=== PATIENT | female | born 1965 | race Caucasian/White ===

== ENCOUNTER 2016-10-20 20:31 | Emergency (ER) | payer OTHER ==
[2016-10-20 20:57] VITALS: TEMP 98.8
[2016-10-20 21:44] LABS: ADD DIFF? NO; ADD MORPH? NO; ADD SCAN? NO; ATYPICAL LYMPHOCYTE FLAG 10 (0-99); FRAGMENT RBC FLAG 0 (0-99); HEMATOCRIT 37.8 % (38.0-47.0); LEFT SHIFT FLG 0 (0-99); LIPEMIA HEMOLYSIS FLAG 90 (0-99); MEAN CELL HEMOGLOBIN CONCENTR. 34.4 g/dL (32.4-36.7); MEAN CELL VOLUME 95.9 fL (81.5-99.8); MEAN PLATELET VOLUME 9.8 fL (8.7-11.7); PLATELET CLUMPS FLAG 0 (0-99); PLATELET COUNT 250 10^3/uL (150-400); RED BLOOD CELL COUNT 3.94 10^6/uL (4.18-5.33); RED CELL DISTRIBUTION WIDTH 12.5 % (11.5-15.2)
[2016-10-20 21:55] LABS: ANION GAP 9 mEq/L (8-16); CALCIUM 9.5 mg/dL (8.5-10.4); CARBON DIOXIDE 25 mEq/l (22-31); CHLORIDE 101 mEq/L (97-110); CREATININE 0.8 mg/dL (0.6-1.0); GLOMERULAR FILTRATION RATE > 60; GLUCOSE 98 mg/dL (70-100); POTASSIUM 3.7 mEq/L (3.5-5.2); SODIUM 135 mEq/L (134-144)
[2016-10-20 22:05] LABS: TROPONIN I < 0.012 ng/mL (0-0.034)
--- NOTE | 2016-10-20 22:06 | CPEKG ---
Heart Rate: 64 RR Interval: 938 P-R Interval: 176 QRSD Interval: 88 QT Interval: 420 QTC Interval: 434 P [place]: 72 QRS [place]: 130 T Wave [place]: 62 EKG Severity - BORDERLINE ECG - EKG Impression: SINUS RHYTHM EKG Impression: RIGHT AXIS DEVIATION EKG Impression: BORDERLINE T ABNORMALITIES, ANT-LAT LEADS Electronically Signed By: Tressa Pedraza 20-Oct-2016 23:06:26
--- NOTE | 2016-10-20 22:19 | EDPHY ---
H & P Stated Complaint: nausea, jaw pain, cp 4 days ago - Personal History Current Tetanus Diphtheria and Acellular Pertussis (TDAP): Yes - Medical/Surgical History Hx Asthma: No Hx Chronic Respiratory Disease: No Hx Diabetes: No Hx Cardiac Disease: No Hx Renal Disease: No Hx Cirrhosis: No Hx Alcoholism: No Hx HIV/AIDS: No Hx Splenectomy or Spleen Trauma: No Other PMH: denies - Social History Smoking Status: Never smoked Time Seen by Provider: 10/20/16 21:25 HPI/ROS: Chief complaint: Left-sided jaw pain History of present illness: This is a 51-year-old female who presents to the emergency department for evaluation of left-sided jaw pain. Patient reports the onset of symptoms over the last 4 days. She reports she has had increased salivation with it. However she is concerned because on the 1st day of symptoms , approximately 4 days ago she had some chest pain. She describes right-sided pain. She also reports she developed some pain in her arm that day although she states she cannot remember if it was the right or left arm. The pain in her chest and arms resolved after the 1st day and have not returned. At this time it is just the jaw that is bothering her. She called Ask a Nurse hotline who recommended she come to the emergency room for evaluation. Patient denies other associated signs or symptoms including no fevers, no cold-like symptoms, no cough or trouble breathing, no pain or swelling in the legs. Review of systems: A 10 point review of systems was obtained and other than described above was negative (Mychal Boyce) - Physical Exam Exam: General Appearance: Alert, no distress. Eyes: Pupils equal and round no pallor or injection. ENT: Tympanic membranes, external auditory canals, external easr and surrounding soft tissue including over the mastoids are unremarkable. Nasopharynx is not injected. There is no rhinorrhea. Mouth is unremarkable. Oropharynx is not injected. There is no edema. There is no exudate. There is no asymmetry. The uvula is midline. No elevation of the tongue. There is no hoarseness, no drooling, no trismus, no stridor. Mild tenderness at the angle of the left jaw without edema noted. Respiratory: There are no retractions, lungs are clear to auscultation. Cardiovascular: Regular rate and rhythm. Gastrointestinal: Abdomen is soft and nontender, no masses, bowel sounds normal. Neurological: Alert and oriented x4. Strength and sensation intact and symmetrical. Skin: Warm and dry, no rashes. Musculoskeletal: Neck is supple nontender. Extremities are symmetrical, full range of motion. Psychiatric: Patient is oriented X 3, there is no agitation. (Mychal Boyce) Constitutional: Initial Vital Signs Temperature (C) 37.1 C 10/20/16 20:54 Heart Rate 69 10/20/16 20:54 Respiratory Rate 20 10/20/16 20:54 Blood Pressure 122/79 H 10/20/16 20:54 O2 Sat (%) 99 10/20/16 20:54 O2 Delivery Mode Room Air Allergies/Adverse Reactions: onion Allergy (Verified 10/20/16 20:52) avacado Allergy (Uncoded 10/20/16 20:52) Home Medications: Medication Instructions Recorded FLUoxetine 10/20/16 Nora 28 Tablet 10/20/16 Medical Decision Making - Diagnostics Imaging: Chest x-ray unremarkable (Mychal Boyce) ED Course/Re-evaluation: The patient was evaluated and managed by the physician's pharmacy assistant. My cosignature indicates that I reviewed the chart and I agree with the findings and plan of care as documented. I am the secondary supervising physician. ( Tressa Pedraza) Differential Diagnosis: Patient seen under the supervision of my secondary supervising physician Dr. Tressa Pedraza. Patient presents to the emergency depart for jaw pain. On presentation she is nontoxic. Afebrile and vital signs are stable. There is tenderness to the angle of the jaw on the left side without edema. No other findings to the jaw, mouth or throat. Given the chest pain initially she is evaluated without significant findings. I am concerned for possible developing salivary issue. I have discussed the use of sililogouges at home. Patient is discharged home. She is asked to follow up with her primary care doctor next week for recheck. Strict return precautions are given. Patient voiced understanding and agreement with plan. (Mychal Boyce) - Data Points Laboratory Results: Laboratory Results 10/20/16 21:35 10/20/16 21:35 10/20/16 10/20/16 21:35 21:35 WBC 4.97 10^3/uL 10^3/uL (3.80-9.50) RBC 3.94 10^6/uL L 10^6/uL (4.18-5.33) Hgb 13.0 g/dL g/dL (12.6-16.3) Hct 37.8 % L % (38.0-47.0) MCV 95.9 fL fL (81.5-99.8) MCH 33.0 pg pg (27.9-34.1) MCHC 34.4 g/dL g/dL (32.4-36.7) RDW 12.5 % % (11.5-15.2) Plt Count 250 10^3/uL 10^3/uL (150-400) MPV 9.8 fL fL (8.7-11.7) Neut % (Auto) 35.4 % L % (39.3-74.2) Lymph % (Auto) 49.3 % H % (15.0-45.0) [place] % (Auto) 6.4 % % (4.5-13.0) Eos % (Auto) 8.5 % H % (0.6-7.6) Baso % (Auto) 0.4 % % (0.3-1.7) Nucleat RBC Rel Count 0.0 % % (0.0-0.2) Absolute Neuts (auto) 1.76 10^3/uL 10^3/uL (1.70-6.50) Absolute Lymphs (auto) 2.45 10^3/uL 10^3/uL (1.00-3.00) Absolute Monos (auto) 0.32 10^3/uL 10^3/uL (0.30-0.80) Absolute Eos (auto) 0.42 10^3/uL H 10^3/uL (0.03-0.40) Absolute Basos (auto) 0.02 10^3/uL 10^3/uL (0.02-0.10) Absolute Nucleated RBC 0.00 10^3/uL 10^3/uL (0-0.01) Immature Gran % 0.0 % % (0.0-1.1) Immature Gran # 0.00 10^3/uL 10^3/uL (0.00-0.10) Sodium 135 mEq/L mEq/L (134-144) Potassium 3.7 mEq/L mEq/L (3.5-5.2) Chloride 101 mEq/L mEq/L (97-110) Carbon Dioxide 25 mEq/l mEq/l (22-31) Anion Gap 9 mEq/L mEq/L (8-16) BUN 18 mg/dL mg/dL (7-23) Creatinine 0.8 mg/dL mg/dL (0.6-1.0) Estimated GFR > 60 Glucose 98 mg/dL mg/dL (70-100) Calcium 9.5 mg/dL mg/dL (8.5-10.4) Troponin I < 0.012 ng/mL ng/mL (0-0.034) Departure - Departure Disposition: Home, Routine, Self-Care Clinical Impression: Jaw pain Condition: Good Instructions: Chest Pain (ED) Additional Instructions: Follow-up with your primary care doctor on Sunday for recheck If symptoms worsen or new symptoms develop return to the emergency department for recheck Referrals: Christa Pacheco MD [Primary Care Provider] - As per Instructions
[2016-10-20 23:16] VITALS: BP 117/65; PULSE 63; RESP 14; O2SAT 94
== END 2016-10-20 23:16 | disposition home or self-care (01) ==
DX: R68.84 Jaw pain (principal)

== ENCOUNTER → 2017-03-06 | Outpatient (CLI) | payer OTHER | LOC: FIMAGING 09:13 | PROVIDERS: ATTEND Internal Medicine | DX: Z12.31 Encounter for screening mammogram for malignant neoplasm of breast (principal) | CPT/HCPCS: G0202 ==

== ENCOUNTER → 2018-04-09 | Outpatient (CLI) | payer OTHER | LOC: FIMAGING 11:10 | PROVIDERS: ATTEND Internal Medicine | DX: Z12.31 Encounter for screening mammogram for malignant neoplasm of breast (principal) ==

== ENCOUNTER 2018-11-02 16:34 | Emergency (ER) | payer OTHER ==
--- NOTE | 2018-11-02 16:30 | EDPHY ---
H & P Time Seen by Provider: 11/02/18 16:35 Constitutional: Initial Vital Signs Temperature (C) 38.6 C H 11/02/18 16:44 Heart Rate 66 11/02/18 16:44 Respiratory Rate 16 11/02/18 16:44 Blood Pressure 131/89 H 11/02/18 16:44 O2 Sat (%) 99 11/02/18 16:44 O2 Delivery Mode Room Air Allergies/Adverse Reactions: onion Allergy (Verified 11/02/18 16:43) avacado Allergy (Uncoded 10/20/16 20:52) Home Medications: Medication Instructions Recorded FLUoxetine 10/20/16 Nora 28 Tablet 10/20/16 Ibuprofen [Motrin] 800 mg PO Q8 #20 tab 11/02/18 oxyCODONE IR [Oxycodone Ir (*)] 5 mg PO Q4-6PRN PRN #20 tab 11/02/18 Medical Decision Making - Diagnostics Imaging Results: Imaging Impressions Abdomen CT 11/02/18 16:40 Impression: 1. There is no rib fracture, pleural effusion, or pneumothorax. 2. There are some mild dependent subsegmental atelectatic changes on the right side. CONTRAST-ENHANCED CT SCAN OF THE ABDOMEN AND PELVIS: Liver: Normal in size, with no evidence of hepatic or pericapsular hematoma. There are indeterminate hypodensities seen in the anterior right hepatic lobe measuring 10 to 18 mm in diameter on series 10, image 14 (Hounsfield unit measurements of 62-65), as well as punctate hypodensities seen along the posterior right hepatic dome on series 10, images 10, 11, and 23. There is a 1.3 x 1.5 cm cyst in the caudal right hepatic lobe with a Hounsfield unit measurement of 18. Bile Ducts: There appears to be some minimal intrahepatic bile duct dilatation ( versus some mild periportal edema in this patient who has been recently IV hydrated). The common bile duct does not appear dilated, nor is there any pancreatic ductal dilatation. Correlation with a fractionated bilirubin is suggested. Gallbladder: There are no calcified gallstones, wall thickening, or pericholecystic fluid. Pancreas: Normal. Spleen: Normal. Adrenal Glands: There is a 2.5 x 3.1 x 3.2 cm rounded right adrenal gland mass with an arterial phase enhancement of 47 and portal venous phase enhancement of 46. This is an indeterminate finding at this point. One could consider a follow- up multiphasic contrast-enhanced MR or CT in 3 months for reassessment. The left adrenal gland appears normal. Kidneys/Ureters/Urinary Bladder: The kidneys are normal in size, shape, and position, with no hydronephrosis. There is a vnt-jestu-ll-characterize hypodensity along the anterior midpole of the right kidney on series 10, image 26. The urinary bladder is unremarkable. GI Tract: The stomach, small bowel, large bowel, and appendix appear normal.] Retroperitoneum: Negative. Mesentery/Omentum/Peritoneum: There is no ascites, free air, or localized fluid collection.] Vessels: The abdominal aorta is normal in size, and tapers normally. The IVC is normal in caliber. The splenic vein, superior mesenteric vein, and the main portal vein are patent. Reproductive Organs: The uterus is anteverted and anteflexed. There is no adnexal mass.. Abdominal Wall: Negative. Osseous Structures: The vertebral body heights are maintained. There is trace degenerative anterolisthesis at L4-L5 and there is a vacuum disk phenomenon at L5-S1. There is some facet degenerative change with vacuum phenomena at L4-L5 as well. There is no transverse or spinous process fracture. Each hip is anatomically-aligned. The SI joints are normal, with no diastasis. Impression: 1. There is no acute intra-abdominal visceral injury identified. 2. There is an indeterminate 3.2 cm right adrenal gland nodule. Consider follow- up multiphasic contrast-enhanced CT or MR in 3 months for reassessment. 3. There are a couple of small indeterminate hypodensities seen within the right hepatic lobe, which could also be reevaluated in 3 months, given the lack of any preceding studies. 4. Query mild intrahepatic bile duct dilatation versus mild periportal edema from IV hydration. Correlation with fractionated bilirubin level is suggested. Findings were discussed with Michele Hurd MD at 18:53, on 11/02/2018. Chest CT 11/02/18 16:40 Impression: 1. There is no rib fracture, pleural effusion, or pneumothorax. 2. There are some mild dependent subsegmental atelectatic changes on the right side. CONTRAST-ENHANCED CT SCAN OF THE ABDOMEN AND PELVIS: Liver: Normal in size, with no evidence of hepatic or pericapsular hematoma. There are indeterminate hypodensities seen in the anterior right hepatic lobe measuring 10 to 18 mm in diameter on series 10, image 14 (Hounsfield unit measurements of 62-65), as well as punctate hypodensities seen along the posterior right hepatic dome on series 10, images 10, 11, and 23. There is a 1.3 x 1.5 cm cyst in the caudal right hepatic lobe with a Hounsfield unit measurement of 18. Bile Ducts: There appears to be some minimal intrahepatic bile duct dilatation ( versus some mild periportal edema in this patient who has been recently IV hydrated). The common bile duct does not appear dilated, nor is there any pancreatic ductal dilatation. Correlation with a fractionated bilirubin is suggested. Gallbladder: There are no calcified gallstones, wall thickening, or pericholecystic fluid. Pancreas: Normal. Spleen: Normal. Adrenal Glands: There is a 2.5 x 3.1 x 3.2 cm rounded right adrenal gland mass with an arterial phase enhancement of 47 and portal venous phase enhancement of 46. This is an indeterminate finding at this point. One could consider a follow- up multiphasic contrast-enhanced MR or CT in 3 months for reassessment. The left adrenal gland appears normal. Kidneys/Ureters/Urinary Bladder: The kidneys are normal in size, shape, and position, with no hydronephrosis. There is a tjh-ygkaq-wi-characterize hypodensity along the anterior midpole of the right kidney on series 10, image 26. The urinary bladder is unremarkable. GI Tract: The stomach, small bowel, large bowel, and appendix appear normal.] Retroperitoneum: Negative. Mesentery/Omentum/Peritoneum: There is no ascites, free air, or localized fluid collection.] Vessels: The abdominal aorta is normal in size, and tapers normally. The IVC is normal in caliber. The splenic vein, superior mesenteric vein, and the main portal vein are patent. Reproductive Organs: The uterus is anteverted and anteflexed. There is no adnexal mass.. Abdominal Wall: Negative. Osseous Structures: The vertebral body heights are maintained. There is trace degenerative anterolisthesis at L4-L5 and there is a vacuum disk phenomenon at L5-S1. There is some facet degenerative change with vacuum phenomena at L4-L5 as well. There is no transverse or spinous process fracture. Each hip is anatomically-aligned. The SI joints are normal, with no diastasis. Impression: 1. There is no acute intra-abdominal visceral injury identified. 2. There is an indeterminate 3.2 cm right adrenal gland nodule. Consider follow- up multiphasic contrast-enhanced CT or MR in 3 months for reassessment. 3. There are a couple of small indeterminate hypodensities seen within the right hepatic lobe, which could also be reevaluated in 3 months, given the lack of any preceding studies. 4. Query mild intrahepatic bile duct dilatation versus mild periportal edema from IV hydration. Correlation with fractionated bilirubin level is suggested. Findings were discussed with Michele Hurd MD at 18:53, on 11/02/2018. Imaging: Discussed imaging studies w/ manager call Radiologist, I viewed and interpreted images myself ED Course/Re-evaluation: CHIEF COMPLAINT: Right rib pain, LTA HISTORY OF PRESENT ILLNESS: The patient is a 53 y/o female arriving via EMS as a limited trauma alert complaining of right rib pain. Per EMS, the patient was riding a draft horse un- helmeted when she was bucked off and fell on her right side. She did not lose consciousness and is not complaining of any neck pain. However, she was unable to move due to the right rib pain. She is unable to take a deep breath, but her O2Sats are 97%. Due to the pain she was given a total of 200mcg IV Fentanyl. No fever, headache, body aches, lightheadedness, chest pain, heart palpitations, cough, abdominal pain, urinary or bowel complaints, numbness, paresthesias. REVIEW OF SYSTEMS: A comprehensive 10 system review of systems is otherwise negative aside from elements mentioned in the history of present illness and medical decision making. PHYSICAL EXAM: General Appearance: Alert, no distress, talking appropriately, comfortable. Head: Atraumatic without scalp tenderness or obvious injury Eyes: Pupils equal, round, reactive to light and accommodation, EOMI, no trauma , no injection. Ears: Clear bilaterally, no perforation, no hemotympanum Nose: Atraumatic, no rhinorrhea, no septal hematoma Neck: All Russian C-spine rules set criteria are negative. The cervical spine is nontender and there is no pain or neurologic deficits with active range of motion. Supple, 2+ carotid upstroke bilaterally without bruit, no trauma, trachea midline. Cardiovascular: Heart is regular rate and rhythm without murmur. Bilateral carotid, radial, dorsalis pedis pulses intact. Good capillary refill all extremities. Chest: Right lateral chest wall tenderness. Equal bilateral breath sounds. Good oxygen saturations with normal minute ventilation. Chest is nontender to palpation. Gastrointestinal: Soft, nontender, non-distended. No rebound, guarding, or peritoneal signs. There is no evidence of external or internal trauma. Back: Spinal precautions were maintained. There is no thoracic or lumbar spine or paraspinal tenderness. Extremities: All extremities are nontender to palpation without obvious deformity. There is full active range of motion of the joints. Neurological: The patient has normal DTRs and non-focal Cranial nerves, motor, sensory, and cerebellar exam Skin: No lacerations, chauhan, or abrasions. Past medical history: Denies Past surgical history: Denies Family history: Denies Social history: Employed, does not abuse drug or alcohol DIAGNOSTICS/PROCEDURES/CRITICAL CARE TIME: Chest CT: No acute findings. Abdominopelvic CT: No acute findings. Incidental findings of adrenal and liver cyst; repeat CT or MRI in 3 months with PCP. DIFFERENTIAL DIAGNOSIS: The differential diagnosis for the patient's trauma included but was not limited to intracranial injury, long bone and pelvic bone fractures, spinal injury, intra-abdominal injury, and intra-thoracic injury. MEDICAL DECISION MAKING: The patient is a 53 y/o female arriving via EMS as a limited trauma alert presenting with right rib pain secondary to falling off of a draft horse today. She denies loss of consciousness or neck pain. On exam she has right later chest wall tenderness to palpation. She does not have any abdominal tenderness. Labs as well as chest, abdomen, pelvic CT ordered; 1mg IV Dilaudid administered. 1730: Patient is still in pain; additional 1mg IV Dilaudid and 100mcg IV Fentanyl. 1855: I spoke to Dr. Hyatt, radiologist regarding patient's imaging findings. There are no acute findings. There are incidental findings of adrenal and liver cyst; repeat CT or MRI in 3 months. 1900: Reassessed patient and discussed imaging findings. I have prescribed her OxyIR for pain. I have also advised her to follow up with her PCP regarding the imaging findings. Return precautions provided; patient is comfortable with this plan. - Data Points Laboratory Results: 11/02/18 17:02 POC Hgb 13.6 gm/dL gm/dL (12.6-16.3) POC Hct 40 % % (38-47) POC Sodium 142 mEq/L mEq/L (135-145) POC Potassium 3.2 mEq/L L mEq/L (3.3-5.0) POC Chloride 102 mEq/L mEq/L (97-110) POC Total CO2 24 mEq/L mEq/L (22-31) POC BUN 15 mg/dL mg/dL (7-23) POC Creatinine 0.8 mg/dL mg/dL (0.6-1.0) POC Glucose 120 mg/dL H mg/dL (70-100) Medications Given: Discontinued Medications Fentanyl (Sublimaze) 100 mcg IVP EDNOW ONE Stop: 11/02/18 17:34 Last Admin: 11/02/18 17:36 Dose: 100 mcg Hydromorphone HCl (Dilaudid) 1 mg IVP EDNOW ONE Stop: 11/02/18 17:00 Last Admin: 11/02/18 17:10 Dose: 1 mg Hydromorphone HCl (Dilaudid) 1 mg IVP EDNOW ONE Stop: 11/02/18 18:21 Last Admin: 11/02/18 18:25 Dose: 1 mg Point of Care Test Results: Chemistry 11/02/18 17:02 POC Sodium 142 mEq/L mEq/L (135-145) POC Potassium 3.2 mEq/L L mEq/L (3.3-5.0) POC Chloride 102 mEq/L mEq/L (97-110) POC Total CO2 24 mEq/L mEq/L (22-31) POC BUN 15 mg/dL mg/dL (7-23) POC Creatinine 0.8 mg/dL mg/dL (0.6-1.0) POC Glucose 120 mg/dL H mg/dL (70-100) ISTAT H&H 11/02/18 17:02 POC Hgb 13.6 gm/dL gm/dL (12.6-16.3) POC Hct 40 % % (38-47) Departure - Departure Disposition: Home, Routine, Self-Care Clinical Impression: Rib pain on right side Rib contusion Qualifiers: Encounter type: initial encounter Laterality: right Qualified Code(s): S20.211A - Contusion of right front wall of thorax, initial encounter Condition: Good Instructions: Rib Contusion (ED) Additional Instructions: 1. Followup with your primary doctor within 72 hours for reevaluation. 2. Take OxyIR and motrin as prescribed for pain. 3. Follow up with your PCP for imaging follow up in 3 months as you have adrenal and liver cysts. 4. Return to the emergency department for fever, worsening pain, shortness of breath or difficulty breathing, abdominal pain, blood in urine or other concerns. Referrals: [facility],. [Clinic] - As per Instructions Prescriptions: Ibuprofen [Motrin] 800 mg PO Q8 #20 tab oxyCODONE IR [Oxycodone Ir (*)] 5 mg PO Q4-6PRN PRN #20 tab PRN Reason: Pain, Moderate Report Scribed for: Michele Hurd Report Scribed by: Yara Jacob Date of Report: 11/02/18 Time of Report: 16:53
[2018-11-02] MEDS ORDERED: IOPAMIDOL (ISOVUE-300) 100 ML BTL ONE (16:57)
[2018-11-02] MEDS ORDERED: HYDROmorphONE/DILAUDID 2 MG/ML INJ IVP ONE ×2 (16:59→18:20)
[2018-11-02] MEDS ORDERED: fentaNYL 100 MCG/2 ML INJ IVP ONE (17:33)
[2018-11-02] MEDS ORDERED: OXYCODONE/APAP 5/325MG PREPACK#4 BTL TAKEHOME ONE (19:09)
[2018-11-02 19:27] VITALS: BP 140/85
== END 2018-11-02 19:26 | disposition home or self-care (01) ==
LOC: EDUNIT#
DX: S20.211A Contusion of right front wall of thorax, initial encounter (principal); V80.010A Animal-rider injured by fall from or being thrown from horse in noncollision accident, initial encounter; Y93.52 Activity, horseback riding; Y92.9 Unspecified place or not applicable; Y99.9 Unspecified external cause status
CPT/HCPCS: 82435-PO; 82565-PO; 82947-PO; 84132-PO; 84295-PO; 84520-PO; 85014-ER; 96374; J1170; J3010; Q9967

== ENCOUNTER 2018-11-03 06:22 | Inpatient (IN) | payer OTHER ==
--- NOTE | 2018-11-03 06:57 | EDPHY ---
H & P Time Seen by Provider: 11/03/18 06:53 HPI/ROS: Chief complaint. Limited trauma activation yesterday, not keeping medication down HPI. 53-year-old female was seen last night is limited trauma activation after falling off a horse. She complained of right chest wall and right abdominal pain. She tells me her pain was never under good control before she was discharged. She was discharged with oxycodone IR. She has been unable to keep her medication down. She continues to have right upper abdominal pain that radiates to her back. No head injury or neck pain. No chest pain or shortness of breath. Nausea and vomiting. Increased pain with range of motion. Patient shows me she has pain to the right mid lower back and right upper quadrant. No injury to arms or legs ROS 10 systems were reviewed and negative with the exception of the elements mentioned in the history of present illness Past Medical/Surgical History: Mood disorder, Social History: , nonsmoker, no alcohol Smoking Status: Never smoked Physical Exam: General Appearance: Alert well-developed female mild distress vital signs are stable Eyes: Pupils equal and round no pallor or injection. ENT, Mouth: Mucous membranes are moist. Respiratory: There are no retractions, lungs are clear to auscultation. Cardiovascular: Regular rate and rhythm. Gastrointestinal: Abdomen is tender in the right upper quadrant. No masses or organomegaly. Normal bowel sounds Neurological: Awake and alert, sensory and motor exams grossly normal. Skin: Warm and dry, no rashes. Musculoskeletal: Neck is supple nontender. Tenderness to the right side of the spine at about T12, L1. Not tender over the spine Extremities symmetrical, full range of motion. Psychiatric: Patient is oriented X 3, there is no agitation. Constitutional: Initial Vital Signs Temperature (C) 36.6 C 11/03/18 06:27 Heart Rate 70 11/03/18 06:27 Respiratory Rate 16 11/03/18 06:27 Blood Pressure 138/88 H 11/03/18 06:27 O2 Sat (%) 100 11/03/18 06:27 O2 Delivery Mode Room Air Allergies/Adverse Reactions: onion Allergy (Verified 11/03/18 06:28) avacado Allergy (Uncoded 11/03/18 06:28) Home Medications: Medication Instructions Recorded Ethinyl Estradiol/Drospirenone 1 each PO DAILY 10/20/16 [Nora 28 Tablet] FLUoxetine [Prozac 20 MG (*)] 20 mg PO DAILY 10/20/16 oxyCODONE IR [Oxycodone Ir (*)] 5 mg PO Q4-6PRN PRN #20 tab 11/02/18 Cetirizine [ZyrTEC 10 mg (*)] 10 mg PO DAILY 11/03/18 Cyanocobalamin [Vitamin B12 (*)] 1,000 mcg PO DAILY 11/03/18 Fluticasone/Salmeterol [Advair Hfa 1 puffs IH DAILY PRN 11/03/18 115-21 Mcg Inhaler] Herbals/Supplements -Info Only 1 each PO DAILY 11/03/18 Ibuprofen [Motrin] 800 mg PO Q8 PRN 11/03/18 LORazepam [Ativan (*)] 1 mg PO HS PRN 11/03/18 Omeprazole 20 mg PO DAILY 11/03/18 Medical Decision Making - Diagnostics Imaging Results: Imaging Impressions Abdomen Ultrasound 11/03/18 08:07 Impression: 1. There are 2 discrete hyperechoic lesions seen in the anterior and posterior medial right hepatic lobe, which are little changed in size in size from the CT scan from last evening. These findings are nonetheless concerning for small intraparenchymal hemorrhages. 2. Little change in size of a right suprarenal lesion which has complex sonographic features (and with a differential Hounsfield unit attenuation), suggesting that this likely represents an adrenal hemorrhage. 3. Query mild intrahepatic bile duct dilatation, with no extrahepatic bile duct dilatation. There is no evidence of cholelithiasis or cholecystitis. Findings were discussed with IRA MARTINEZ MD at 9:35 AM, on 11/03/2018. CT reevaluation may be considered in further assessment. Abdomen CT 11/03/18 09:25 Impression: 1. There has been little change in the appearance of the hypodense lesions involving the anterolateral and posteromedial right hepatic lobe with features likely representing intraparenchymal foci of hemorrhage and there has been no substantial change in the size of the right adrenal gland lesion containing variable forms of coagulated and seromatous blood. 2. There is no evidence of hepatic pericapsular hemorrhage, sympathetic pleural effusion, or ascites. 3. Mild intrahepatic bile duct dilatation, query secondary to hemobilia. Correlation with fractionated serum bilirubin levels and follow-up CT imaging is suggested. Findings were discussed with Dr. Lavell Moss at 10:55 a.m. on November 03, 2018. Ultrasound right upper quadrant shows possible hemorrhage in to the liver as well as right adrenal gland Repeat CT shows dilated hepatic bile duct dilation possibly secondary to hemophilia. Likely intraparenchymal hemorrhage of the liver. Possible hemorrhage in to the right adrenal gland Procedures: IV normal saline. Phenergan, Dilaudid, Toradol IV. Lidocaine patch to the right side of her mid back ED Course/Re-evaluation: I consulted discussed case with Dr. Moss, trauma surgery who sees the patient in the emergency department Serial evaluations patient remained stable. Pain control is an issue. Family and I discussed imaging and lab results. We discussed treatment plan including recommendation for admission. They expressed understanding and agreement Differential Diagnosis: Probable intraparenchymal hemorrhage to the liver and adrenal gland secondary to trauma last night. No evidence of liver laceration. - Data Points Laboratory Results: Laboratory Results 11/03/18 06:59 11/03/18 06:59 11/03/18 11/03/18 06:59 06:59 WBC 11.98 10^3/uL H 10^3/uL (3.80-9.50) RBC 4.18 10^6/uL 10^6/uL (4.18-5.33) Hgb 13.7 g/dL g/dL (12.6-16.3) Hct 39.9 % % (38.0-47.0) MCV 95.5 fL fL (81.5-99.8) MCH 32.8 pg pg (27.9-34.1) MCHC 34.3 g/dL g/dL (32.4-36.7) RDW 12.7 % % (11.5-15.2) Plt Count 268 10^3/uL 10^3/uL (150-400) MPV 9.8 fL fL (8.7-11.7) Neut % (Auto) 86.7 % H % (39.3-74.2) Lymph % (Auto) 8.5 % L % (15.0-45.0) [place] % (Auto) 4.3 % L % (4.5-13.0) Eos % (Auto) 0.0 % L % (0.6-7.6) Baso % (Auto) 0.2 % L % (0.3-1.7) Nucleat RBC Rel Count 0.0 % % (0.0-0.2) Absolute Neuts (auto) 10.39 10^3/uL H 10^3/uL (1.70-6.50) Absolute Lymphs (auto) 1.02 10^3/uL 10^3/uL (1.00-3.00) Absolute Monos (auto) 0.52 10^3/uL 10^3/uL (0.30-0.80) Absolute Eos (auto) 0.00 10^3/uL L 10^3/uL (0.03-0.40) Absolute Basos (auto) 0.02 10^3/uL 10^3/uL (0.02-0.10) Absolute Nucleated RBC 0.00 10^3/uL 10^3/uL (0-0.01) Immature Gran % 0.3 % % (0.0-1.1) Immature Gran # 0.03 10^3/uL 10^3/uL (0.00-0.10) Sodium 136 mEq/L mEq/L (135-145) Potassium 4.0 mEq/L mEq/L (3.5-5.2) Chloride 102 mEq/L mEq/L (97-110) Carbon Dioxide 24 mEq/l mEq/l (22-31) Anion Gap 10 mEq/L mEq/L (6-14) BUN 12 mg/dL mg/dL (7-23) Creatinine 0.7 mg/dL mg/dL (0.6-1.0) Estimated GFR > 60 Glucose 120 mg/dL H mg/dL (70-100) Calcium 9.5 mg/dL mg/dL (8.5-10.4) Total Bilirubin 0.5 mg/dL mg/dL (0.1-1.4) Conjugated Bilirubin 0.3 mg/dL mg/dL (0.0-0.5) Unconjugated Bilirubin 0.2 mg/dL mg/dL (0.0-1.1) AST 66 IU/L H IU/L (14-46) ALT 77 IU/L H IU/L (9-52) Alkaline Phosphatase 68 IU/L IU/L (38-126) Total Protein 7.0 g/dL g/dL (6.3-8.2) Albumin 4.0 g/dL g/dL (3.5-5.0) Lipase 48 IU/L IU/L (23-300) Medications Given: Acetaminophen (Tylenol) 1,000 mg PO Q8 NASRIN Stop: 05/02/19 13:59 Last Admin: 11/03/18 14:58 Dose: Not Given Fluoxetine HCl (Prozac) 20 mg PO DAILY NASRIN Stop: 05/02/19 11:59 Last Admin: 11/03/18 14:58 Dose: Not Given Hydromorphone HCl (Dilaudid Customer Service Voice) 0 mg IV PRN PRN; Protocol PRN Reason: Pain, Severe Unable to Take PO Stop: 11/13/18 11:58 Last Admin: 11/03/18 14:51 Dose: 6 mg Lactated Ringer's (Lr) 1,000 mls @ 100 mls/hr IV CONT NASRIN Stop: 05/02/19 12:29 Last Admin: 11/03/18 14:52 Dose: 1,000 mls Ketorolac Tromethamine (Toradol) 30 mg IVP Q6H NASRIN Stop: 11/08/18 11:59 Last Admin: 11/03/18 14:11 Dose: 30 mg Miscellaneous Medication (Icy Hot Lidocaine/Menthol 4%/1% Patch) 1 patch TD DAILY NASRIN Stop: 05/02/19 11:59 Last Admin: 11/03/18 14:25 Dose: 1 patch Pantoprazole Sodium (Protonix) 40 mg PO DAILY NASRIN Stop: 05/02/19 11:59 Last Admin: 11/03/18 14:57 Dose: 40 mg Vitamin B Complex (Vitamin B12) 1,000 mcg PO DAILY NASRIN Stop: 05/02/19 11:59 Last Admin: 11/03/18 14:36 Dose: Not Given Discontinued Medications Hydromorphone HCl (Dilaudid) 1 mg IVP EDNOW ONE Stop: 11/03/18 07:05 Last Admin: 11/03/18 07:29 Dose: 1 mg Hydromorphone HCl (Dilaudid) 0.5 mg IVP EDNOW ONE Stop: 11/03/18 09:26 Last Admin: 11/03/18 10:00 Dose: 0.5 mg Hydromorphone HCl (Dilaudid) 0.5 mg IVP EDNOW ONE Stop: 11/03/18 11:53 Last Admin: 11/03/18 11:56 Dose: 0.5 mg Hydromorphone HCl (Dilaudid) 1 mg IVP EDNOW ONE Stop: 11/03/18 11:53 Last Admin: 11/03/18 12:07 Dose: Not Given Sodium Chloride (Ns) 1,000 mls @ 0 mls/hr IV EDNOW ONE; Wide Open PRN Reason: Protocol Stop: 11/03/18 07:05 Last Admin: 11/03/18 07:25 Dose: 1,000 mls Ketorolac Tromethamine (Toradol) 30 mg IVP EDNOW ONE Stop: 11/03/18 07:05 Last Admin: 11/03/18 07:31 Dose: 30 mg Miscellaneous Medication (Icy Hot Lidocaine/Menthol 4%/1% Patch) 1 patch TD EDNOW ONE Stop: 11/03/18 07:06 Last Admin: 11/03/18 07:34 Dose: 1 patch Promethazine HCl (Phenergan) 12.5 mg IVP EDNOW ONE Stop: 11/03/18 07:05 Last Admin: 11/03/18 07:26 Dose: 12.5 mg Departure - Departure Disposition: [facility] Acute Clinical Impression: Intraparenchymal hemorrhage liver Condition: Fair
[2018-11-03] MEDS ORDERED: KETOROLAC 30 MG/1 ML SDV IVP ONE (07:04)
[2018-11-03] MEDS ORDERED: NS 1,000 ML IV ONE (07:04)
[2018-11-03] MEDS ORDERED: PROMETHAZINE HCL 25 MG/ML INJ IVP ONE (07:04)
[2018-11-03] MEDS ORDERED: HYDROmorphONE/DILAUDID 2 MG/ML INJ IVP ONE ×3 (07:04→11:52)
[2018-11-03] MEDS ORDERED: LIDOCAINE 4%/MENTHOL 1% PATCH TD ONE (07:05)
[2018-11-03 07:11] LABS: PLATELET COUNT 268 10^3/uL (150-400)
[2018-11-03] MEDS ORDERED: IOPAMIDOL (ISOVUE-300) 100 ML BTL ONE (10:17)
[2018-11-03] MEDS ORDERED: HYDROmorphONE/DILAUDID 1 MG/ML INJ IVP ONE (11:52)
[2018-11-03] MEDS ORDERED: FLUTICASONE IH PRN (11:53)
[2018-11-03] MEDS ORDERED: SALMETEROL IH PRN (11:53)
[2018-11-03] MEDS ORDERED: LORazepam 1 MG TAB PO PRN (11:53)
[2018-11-03] MEDS ORDERED: NALOXONE HCL 0.4 MG/ML INJ IVP PRN (11:59)
[2018-11-03] MEDS ORDERED: ONDANSETRON 4 MG/2 ML VIAL IVP PRN (12:01)
[2018-11-03] MEDS ORDERED: LR 1,000 ML IV SCH (12:30)
--- NOTE | 2018-11-03 12:50 | GHP ---
[f rep st] PREOP HISTORY AND PHYSICAL ADMITTING DIAGNOSES: 1. Fall from horse. 2. Right adrenal hemorrhage. 3. Liver contusions x2. HISTORY: This is a 53-year-old female who was on a 16-hand horse. The horse bucked 3 times, bucking her off. She went up and then down, hitting a peak height of approximately 14 feet and then came down a muddy arena. She had the wind knocked out of her and it was initially too tender to move. She did not hit her head and there was no loss of consciousness. She came to the emergency department by ambulance. She was found to have right liver contusions, small ( small) x2 and a right adrenal hemorrhage. She was sent home and took a warm bath. On getting out of the bath, she had the onset of increasing abdominal and back pain. She tried taking her Advil and Percocet. She had episodes of vomiting. Does not feel she able to keep the medications down. She had a very rough night. Her pain has continued to increase. She presented to the emergency room this morning. A followup ultrasound again, showed the liver hematomas and the renal mass. To make sure nothing else was being missed, a followup CAT scan was obtained which showed a slight increase in the size of the liver contusions and the adrenal mass. The adrenal mass has varying densities by Hounsfield units consistent with a hematoma which is beginning to dissolve. She will be admitted for pain control and observation. Urinalysis is still pending. SOCIAL HISTORY: She is a nonsmoker. She drinks 1 to 2 glasses of wine 4 times per week. ALLERGIES: She has no known drug allergies. MEDICATIONS: Include Zyrtec 10 mg twice a day. Advair 115-21 inhaler once a day. She uses Prozac 20 mg daily and takes Nora 28 for control daily. Uses Ativan 1 mg p.o. at bedtime for sleep. She also takes oral medications. She takes vitamin B12 at 1000 mg daily as well. PAST SURGICAL HISTORY: Includes endoscopic dilatation of her esophagus for stricture x2. She has had 3 C sections. She has had 2 breast biopsies. There is no history of rheumatic fever, tuberculosis, hepatitis, transfusions. REVIEW OF SYSTEMS: She wears lenses to read. She has a left lower crown. Her asthma bothers her infrequently. Her last mammogram was within the year. Her last Pap smear was approximately 1 year ago. Review of systems Otherwise quite negative. There are no limits on her activities. No history of steroid use. FAMILY HISTORY: Mother is 75. Father 77, both are healthy. She has an older sister who is obese, hypertensive, and has an elevated cholesterol. Her younger brother is alive and well. There are no bleeding disorders, clotting disorders, or anesthesia in the patient's family. PHYSICAL EXAMINATION: VITAL SIGNS: Blood pressure 123/60, heart rate 63, room air sat is 91, respirations are 16. GENERAL: She is awake, alert, and pleasant , but uncomfortable and requiring IV narcotics. HEENT: Skull is normocephalic and atraumatic. There is no bermudez sign or raccoon eyes. Dental occlusion is normal. NEUROLOGIC: Oriented to person, place, and time. Aubree Coma Scale is 15. She is able to recite her 's cell phone number backwards. No focal lateralizing neurologic findings. NECK: Supple and nontender posteriorly. Thyroid is not enlarged. There are no carotid bruits. BACK: Spinous processes are nontender to palpation. Back is otherwise unremarkable. LUNGS: Clear to auscultation. CARDIAC: Shows S1, S2 to be normal with normal split S2 without murmurs, rubs, or gallops. ABDOMEN: Soft. Tender in the right subcostal region. Bowel sounds are hypoactive. PELVIS: Stable to AP and lateral compression. Extremities otherwise unremarkable. IMPRESSION: Patient with pain which is quite difficult to control due to her fall from the horse with her right adrenal hemorrhage and her hepatic contusions. PLAN: Admission for pain control and nausea control. Urinalysis still pending. /[id number]/MODL MTDD
[2018-11-03] MEDS: ACETAMINOPHEN 500 MG TAB PO SCH ×3 (14:09→21:38)
[2018-11-03] MEDS: KETOROLAC 30 MG/1 ML SDV IVP SCH ×2 (14:11→19:41)
[2018-11-03] MEDS: LIDOCAINE 4%/MENTHOL 1% PATCH TD SCH (14:25)
[2018-11-03] MEDS: CYANO/VITAMIN B12 1000 MCG TAB PO SCH (14:36)
[2018-11-03] MEDS: HYDROmorphONE/DILAUDID 6 MG/30 ML PCA IV PRN (14:51)
[2018-11-03] MEDS: PANTOPRAZOLE SODIUM 40 MG TAB PO SCH (14:57)
[2018-11-03] MEDS: FLUoxetine 20 MG CAP PO SCH ×2 (14:58→18:00)
[2018-11-03] MEDS: PATCH REMOVAL 1 EA PATCH TD SCH (21:40)
[2018-11-04] MEDS: KETOROLAC 30 MG/1 ML SDV IVP SCH ×3 (01:32→19:20)
[2018-11-04] MEDS: ACETAMINOPHEN 500 MG TAB PO SCH ×2 (05:44→19:20)
[2018-11-04] MEDS: PANTOPRAZOLE SODIUM 40 MG TAB PO SCH (06:32)
[2018-11-04] MEDS: CETIRIZINE 10 MG TAB PO SCH (10:11)
[2018-11-04] MEDS: HYDROmorphONE/DILAUDID 6 MG/30 ML PCA IV PRN ×2 (10:56→18:40)
[2018-11-04] MEDS: Ethinyl Estradiol/Drospirenone [Yaz 28 Tablet] 1 EACH PO SCH (11:31)
[2018-11-04] MEDS: LIDOCAINE 4%/MENTHOL 1% PATCH TD SCH (11:32)
[2018-11-04] MEDS: CYANO/VITAMIN B12 1000 MCG TAB PO SCH (11:34)
[2018-11-04] MEDS: FLUoxetine 20 MG CAP PO SCH (11:34)
--- NOTE | 2018-11-04 12:02 | TRAUMAPNT ---
Trauma Tertiary Progress Note New Findings: C/o contusion over right shoulder. Now admits to hitting head with fall Assessment/Plan: PAD#1 11/04/18 Assessment: got behind on pain control last pm now better. notes pain over deltoid/shoulder only with elevation of humerus above 90 degrees ( but she is able to do it ). I suspect contusion not rorator cuff injury or subdiaphragmatic blood. UA microscopically positive for blood which is not unexpected. Plan: transition to oral meds follow labs/ VS speech to see Subjective: my shoulder is sore when I move it up. No stool or flatus but I am eating Objective: Vital Signs Temp Pulse Resp BP Pulse Ox 37.2 C 78 17 128/71 H 96 11/04/18 10:00 11/04/18 10:00 11/04/18 10:00 11/04/18 10:00 11/04/18 10:00 Laboratory Results 11/04/18 04:59 11/03/18 11/04/18 11/05/18 05:59 05:59 05:59 Intake Total 2700 500 Output Total 1900 Balance 800 500 - C-Spine Clearance Cervical Spine Cleared: Yes Provider who Cleared Cervical Spine: Isa Physical Exam - Physical Exam General Appearance: WD/WN, alert, no apparent distress Neck: non-tender, full range of motion, supple Respiratory: chest non-tender, lungs clear, normal breath sounds Cardiac/Chest: regular rate, rhythm Abdomen: normal bowel sounds, non-tender, soft Pelvic Exam: deferred Rectal: deferred Back: Normal inspection Skin: normal color, warm/dry Extremities: normal range of motion (Pain with elevation of left humerus above 90 degrees) Neuro/Psych: no motor/sensory deficits, alert, normal mood/affect Time Spent w/Patient (minutes): 25
--- NOTE | 2018-11-04 16:33 | ASMTCMCOM ---
CM Note CM Note Notes: Patient admitted s/p fall from a horse, now with contusion and pain control issues. Therapy has evaluated and cleared for home. No CM needs identified at this time, will likely d/c home with family. CM available for changes. Plan: Independent Date Signed: 11/04/2018 04:32 PM Electronically Signed By:Prerna Dwyer RN
[2018-11-04] MEDS ORDERED: MELATONIN 3 MG TAB PO PRN (20:19)
[2018-11-05] MEDS: ACETAMINOPHEN 500 MG TAB PO SCH ×4 (04:32→20:32)
[2018-11-05] MEDS: KETOROLAC 30 MG/1 ML SDV IVP SCH ×6 (04:33→22:12)
[2018-11-05] MEDS: HYDROmorphONE/DILAUDID 2 MG TAB PO PRN ×6 (06:05→22:11)
[2018-11-05] MEDS: PATCH REMOVAL 1 EA PATCH TD SCH ×2 (06:10→20:35)
[2018-11-05] MEDS ORDERED: oxyCODONE IR 5 MG TAB PO PRN (08:09)
[2018-11-05] MEDS: CYANO/VITAMIN B12 1000 MCG TAB PO SCH (08:32)
[2018-11-05] MEDS: PANTOPRAZOLE SODIUM 40 MG TAB PO SCH (08:32)
[2018-11-05] MEDS: FLUoxetine 20 MG CAP PO SCH (08:32)
[2018-11-05] MEDS: CETIRIZINE 10 MG TAB PO SCH (08:32)
[2018-11-05] MEDS: LIDOCAINE 4%/MENTHOL 1% PATCH TD SCH (08:35)
[2018-11-05] MEDS: Ethinyl Estradiol/Drospirenone [Yaz 28 Tablet] 1 EACH PO SCH (08:49)
[2018-11-05] MEDS ORDERED: MAGNESIUM HYDROXIDE 30 ML UDCUP PO PRN (10:35)
[2018-11-05] MEDS ORDERED: LACTULOSE 20 GM/30 ML UDCUP PO PRN (10:35)
[2018-11-05] MEDS ORDERED: BISACODYL 10 MG SUPP PR PRN (10:35)
[2018-11-05] MEDS ORDERED: POLYETHYLENE GLYCOL 3350 17 GM PKT PO PRN (10:35)
--- NOTE | 2018-11-05 12:34 | PDMN ---
Medical Necessity Medical necessity: Change to inpt as of 11/05/18 2 06:48, pt meets inpt criteria per MD order and pain management GRG. 53 y/o who was bucked off horse sustaining R liver contusions and R adrenal hemorrhage, initially treated at ED and sent home returned to hospital w/increasing abd and back pain and N/V, admitted for pain control. 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
[2018-11-05] MEDS: SENNOSIDES/DOCUSATE SODIUM TAB PO SCH (20:36)
[2018-11-06] MEDS: KETOROLAC 30 MG/1 ML SDV IVP SCH ×2 (04:08→09:37)
[2018-11-06] MEDS: ACETAMINOPHEN 500 MG TAB PO SCH ×2 (04:27→12:08)
[2018-11-06 05:51] LABS: PLATELET COUNT 214 10^3/uL (150-400)
--- NOTE | 2018-11-06 06:55 | TRAUMAPN ---
Trauma Progress Note Assessment/Plan: 53yo F s/p horse fall c liver lac, adrenal hemorrhage - VSS, HDs - Hb stable - abdomen looks overall good. A little distended per her report but better - advance diet, possibly home later if progressing. Subjective: feeling better, wants to eat Objective: Vital Signs Temp Pulse Resp BP Pulse Ox 36.6 C 80 16 98/71 L 94 11/06/18 00:00 11/06/18 00:00 11/06/18 00:00 11/06/18 00:00 11/06/18 00:00 Laboratory Results 11/06/18 04:37 11/06/18 04:37 - C-Spine Clearance Cervical Spine Cleared: Yes Provider who Cleared Cervical Spine: Isa
[2018-11-06 07:17] VITALS: BP 128/69
[2018-11-06] MEDS: CETIRIZINE 10 MG TAB PO SCH (09:34)
[2018-11-06] MEDS: FLUoxetine 20 MG CAP PO SCH (09:34)
[2018-11-06] MEDS: SENNOSIDES/DOCUSATE SODIUM TAB PO SCH (09:35)
[2018-11-06] MEDS: PANTOPRAZOLE SODIUM 40 MG TAB PO SCH (09:35)
[2018-11-06] MEDS: CYANO/VITAMIN B12 1000 MCG TAB PO SCH (09:35)
[2018-11-06] MEDS: HYDROmorphONE/DILAUDID 2 MG TAB PO PRN (09:36)
[2018-11-06] MEDS: Ethinyl Estradiol/Drospirenone [Yaz 28 Tablet] 1 EACH PO SCH (09:37)
[2018-11-06] MEDS: LIDOCAINE 4%/MENTHOL 1% PATCH TD SCH (09:38)
--- NOTE | 2018-11-06 11:55 | GDS ---
[f rep st] DISCHARGE SUMMARY PRESENT ILLNESS: The patient was admitted on 11/03 after being bucked off a horse, [facility] vehicle. Initial evaluation suggested an adrenal mass, likely hematoma, right side, a s well as possible small right intraparenchymal liver hematomas. HOSPITAL COURSE: Serial hematocrits are unchanged. An ultrasound on the day of discharge shows mini mal increase in size of the right adrenal mass. The radiologist raised the question as to mass versu s tumor. Given the patient's recent trauma and the fact she hurts in the right posterior flank, I pleitez spect it is trauma related, but a followup CT scan in a month or 2 would be appropriate. The patient declined a CT scan today because she is concerned about the radiation risk. FINAL DIAGNOSES: 1. Intraparenchymal liver bleed. 2. Right adrenal bleed. DISPOSITION: Home. DISCHARGE MEDICATIONS: 1. Dilaudid p.o. 2. Lidoderm patch for her back. DISCHARGE INSTRUCTIONS: Follow up with Dr. Truong next week. /[id number]/MODL
== END 2018-11-06 12:48 | disposition home or self-care (01) | DRG 965 ==
LOC: F3N 13:50 → OBSVTOIN 11-05 06:48 → F3E 11-05 17:58
PROVIDERS: ADMIT Surgery; ATTEND Surgery
DX: S37.818A Other injury of adrenal gland, initial encounter (principal); S36.112A Contusion of liver, initial encounter; V80.010A Animal-rider injured by fall from or being thrown from horse in noncollision accident, initial encounter; Y93.52 Activity, horseback riding; E86.9 Volume depletion, unspecified; F39 Unspecified mood [affective] disorder
CPT/HCPCS: 92523-GN; 96374; 97161-GP; 97165-GO; 97530-GO; G0378; J1170; J1885; J2550; Q9967